=== PATIENT | male | born 1990 | race African-American/Black ===

== ENCOUNTER 2017-09-30 16:41 | Emergency (ER) | payer SELFPAY ==
[~2017-09-30] VITALS: Ht 180.3 cm; Wt 94.4 kg
[2017-09-30 16:45] VITALS: BP 132/83; TEMP 97.3
[2017-09-30] MEDS ORDERED: TESSALON P100 MG/CAP PO (17:29)
[2017-09-30 17:36] VITALS: PULSE 76
== END 2017-09-30 17:37 | disposition home or self-care (01) ==
LOC: COL.ER 16:41
DX: J06.9 Acute upper respiratory infection, unspecified (principal)